=== PATIENT | male | born 1970 | race African-American/Black ===

== ENCOUNTER 2019-09-21 15:40 | Emergency (ER) | payer MEDICAID, MEDICARE ==
[2019-09-21] MEDS ORDERED: Adacel (T-DAP) 0.5 ML SYRINGE ONE (15:52)
[2019-09-21] MEDS ORDERED: Lidocaine 1% (PF) 30 ML VIAL ONE (16:51)
== END 2019-09-21 17:40 | disposition home or self-care (01) ==
LOC: ERS 15:40
DX: S61.512A Laceration without foreign body of left wrist, initial encounter (principal); J45.909 Unspecified asthma, uncomplicated; W22.8XXA Striking against or struck by other objects, initial encounter
CPT/HCPCS: 12001; 90471; 90715; J2001

== ENCOUNTER 2021-10-08 08:33 | Emergency (ER) | payer MEDICAID, MEDICARE ==
[2021-10-08] MEDS ORDERED: GUAIFENESIN SF SOLN 200 MG/10 ML UDCUP PO SCH (10:15)
== END 2021-10-08 10:59 | disposition home or self-care (01) ==
LOC: ERS 08:33
DX: J00 Acute nasopharyngitis [common cold] (principal); J45.909 Unspecified asthma, uncomplicated; Z79.899 Other long term (current) drug therapy
CPT/HCPCS: 99283